=== PATIENT | female | born 1930 | race Caucasian/White ===

== ENCOUNTER 2018-09-17 10:04 | Inpatient (IN) | payer OTHER ==
[2018-09-17] MEDS ORDERED: MORPHINE 4 MG/ML SYR ONE (11:17)
[2018-09-17] MEDS ORDERED: ONDANSETRON 4 MG/2 ML VIAL ONE (11:17)
--- NOTE | 2018-09-17 11:33 | RAD REPORT ---
EXAM DESCRIPTION: RAD - Chest Pa And Lat (2 Views) - 09/17/2018 11:19 am CLINICAL HISTORY: Chest pain COMPARISON: June 2015 TECHNIQUE: PA and lateral views of the chest were obtained. 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 Flattened diaphragm noted. No acute failure, infiltr ate or mass. Heart size is normal and central vasculature is within normal limits. No pleural effu liza or pneumothorax seen. Osteopenia and accentuated kyphosis noted. There is scoliotic curvature i n the lower thoracic spine. No acute compression fracture seen. No aortic abnormality. 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
--- NOTE | 2018-09-17 11:36 | RAD REPORT ---
EXAM DESCRIPTION: RAD - Hip Left 2 View - 09/17/2018 11:19 am CLINICAL HISTORY: Fall, hip pain COMPARISON: None. FINDINGS: AP and frogleg views of the left hip were obtained. No gross fracture deformity is seen. H owever, there are subtle cortical changes in the subcapital neck concerning for fracture. No AVN or f ocal femoral head abnormality suspected. No pathologic component. Mild degenerative change along the superior acetabular rim. No periarticular mass or hematoma. Imaged portions of the left hemipelvis without acute finding. Suspected fracture findings telephoned to the referring physician 11:32 a.m.. IMPRESSION: Suspected subcapital neck fracture.
--- NOTE | 2018-09-17 11:38 | RAD REPORT ---
EXAM DESCRIPTION: RAD - Femur Left - 09/17/2018 11:19 am CLINICAL HISTORY: Fall, left hip and leg pain COMPARISON: None. FINDINGS: The proximal left femur is detailed in the separate left hip report. From proximal shaft a nd knee joint there is no fracture or acute bone finding. Degenerative changes are present at the kne e joint. No joint effusion seen. There is no dislocation or periosteal reaction noted. No acute or s uspicious bony finding. No air or foreign body in the soft tissues. IMPRESSION: Knee joint degenerative change. No acute finding from proximal shaft in the joint. Left hip joint and proximal femur detailed on the left hip report.
[2018-09-17 11:40] LABS: Absolute Lymphocytes (CBC) 0.9 K/uL (0.7-4.9); Absolute Monocytes 0.3 K/uL (0.1-1.3); Absolute Neutrophil 5.7 K/uL (1.8-8.0); Basophils % 0.4 % (0-1.3); Eosinophils % 0.8 % (0-4.4); Hematocrit 35.9 % (36.0-45.0); Lymphocytes % 12.8 % (15.3-44.8); MCH 31.7 pg (27.0-35.0); MCV 91.6 fL (80-100); Monocytes % 4.7 % (3.3-12.3); RBC Red Blood Cell Count 3.92 M/uL (3.86-4.86)
[2018-09-17 11:44] LABS: Protime INR 1.09
--- NOTE | 2018-09-17 12:06 | RAD REPORT ---
EXAM DESCRIPTION: CT - Hip Left Wo Con - 09/17/2018 11:57 am CLINICAL HISTORY: Fall, hip pain, abnormal left hip plain film COMPARISON: Left hip same date TECHNIQUE: Axial 2 millimeter thick images of the left hip joint and proximal left femur obtained. S agittal and coronal reformatted images were generated and reviewed. The CT scan was performed using dose optimization techniques as appropriate to a performed exam incl uding one or more of the following: Automated exposure control, adjustment of the mA and/or kV accord ing to patient size (this includes techniques or standardized protocols for targeted exams where dose is matched to indication/reason for exam) and use of iterative reconstruction technique. FINDINGS: Left subcapital neck fracture is present. There is no impaction, distraction or angulation deformity. No dislocation of the femoral head. No AVN or focal femoral head abnormality seen. There is no intertrochanteric extension. Degenerative change present along the superior acetabular rim. No acute findings in the left hemipelv is. No periarticular mass or hematoma. IMPRESSION: Left subcapital neck fracture with no impaction, distraction or angulation deformity. No pathologic etiology. No AVN or focal femoral head abnormality.
--- NOTE | 2018-09-17 12:17 | EDPHYS ---
Physician Documentation [facility] Name: Eli Valle Age: 87 yrs Sex: Female : 1930 Arrival Date: 09/17/2018 Time: 10:09 Bed 5 Private MD: SHAQ HO ED Physician Moiz Brown HPI: 09/17 10:47 This 87 yrs old Female presents to ER via Wheelchair with complaints of Fall rn Injury - HIP. 10:47 Details of fall: The patient fell from an upright position, while walking. Onset: The rn symptoms/episode began/occurred just prior to arrival. Associated injuries: The patient sustained left hip. Severity of symptoms: At their worst the symptoms were moderate, in the emergency department the symptoms are unchanged. The patient has not experienced similar symptoms in the past. The patient has not recently seen a physician. Mechanical fall in bathroom, fell onto left hip, no head injury, reports mild left rib pain when sits up, but denies other injuries. . Historical: - Allergies: 10:24 No Known Allergies; aj1 - PMHx: 10:24 Dementia; aj1 - Immunization history:: Flu vaccine is not up to date. - Social history:: Smoking status: Patient/guardian denies using tobacco. - Ebola Screening: : Patient denies travel to an Ebola-affected area in the 21 days before illness onset. - Family history:: not pertinent. - Hospitalizations: : No recent hospitalization is reported. ROS: 10:48 Constitutional: Negative for fever, chills, and weight loss, Eyes: Negative for injury, rn pain, redness, and discharge, ENT: Negative for injury, pain, and discharge, Neck: Negative for injury, pain, and swelling, Cardiovascular: Negative for chest pain, palpitations, and edema, Respiratory: Negative for shortness of breath, cough, wheezing, and pleuritic chest pain, Abdomen/GI: Negative for abdominal pain, nausea, vomiting, diarrhea, and constipation, MS/Extremity: + left hip and leg injury and pain Neuro: Negative for headache, weakness, numbness, tingling, and seizure. Exam: 10:48 Constitutional: This is a well developed, well nourished patient who is awake, alert, rn and in no acute distress. Head/Face: Normocephalic, atraumatic. Eyes: Pupils equal round and reactive to light, extra-ocular motions intact. Lids and lashes normal. Conjunctiva and sclera are non-icteric and not injected. Cornea within normal limits. Periorbital areas with no swelling, redness, or edema. Neck: Trachea midline, no thyromegaly or masses palpated, no vertebral point tenderness. Chest/axilla: Normal chest wall appearance and motion. Nontender with no deformity. No lesions are appreciated. Cardiovascular: Regular rate and rhythm with a normal S1 and S2. No pulse deficits. Respiratory: Lungs have equal breath sounds bilaterally, clear to auscultation, No increased work of breathing, no retractions or nasal flaring. Abdomen/GI: soft, non-tender MS/ Extremity: Pulses equal, no cyanosis. Neurovascular intact. + painful ROM left hip and tenderness proximal left femur Neuro: Awake and alert, GCS 15, oriented to person, place, time, and situation. Cranial nerves II-XII grossly intact. Motor strength 5/5 in all extremities. Sensory grossly intact. Vital Signs: 10:19 BP 112 / 59; Pulse 63; Resp 20; Temp 97.6; Pulse Ox 99% on R/A; Weight 39.01 kg (R); aj1 Height 5 ft. 1 in. (154.94 cm) (R); Pain 10/10; 11:35 BP 134 / 53; Pulse 52; Resp 18; Pulse Ox 100% on R/A; Pain 10/10; ph 12:45 BP 124 / 58; Pulse 54; Resp 18; Pulse Ox 99% on R/A; ph 14:10 BP 156 / 58; Pulse 50; Resp 18; Temp 97.6; Pulse Ox 100% on R/A; ph 10:19 Body Mass Index 16.25 (39.01 kg, 154.94 cm) aj1 [place] Coma Score: 10:19 Eye Response: spontaneous(4). Verbal Response: oriented(5). Motor Response: obeys aj1 commands(6). Total: 15. 11:35 Eye Response: spontaneous(4). Verbal Response: oriented(5). Motor Response: obeys ph commands(6). Total: 15. 12:45 Eye Response: spontaneous(4). Verbal Response: oriented(5). Motor Response: obeys ph commands(6). Total: 15. 14:10 Eye Response: spontaneous(4). Verbal Response: oriented(5). Motor Response: obeys ph commands(6). Total: 15. Trauma Score (Adult): 10:19 Eye Response: spontaneous(1); Verbal Response: oriented(1); Motor Response: obeys aj1 commands(2); Systolic BP: > 89 mm Hg(4); Respiratory Rate: 10 to 29 per min(4); [place] Score: 15; Trauma Score: 12 11:35 Eye Response: spontaneous(1); Verbal Response: oriented(1); Motor Response: obeys ph commands(2); Systolic BP: > 89 mm Hg(4); Respiratory Rate: 10 to 29 per min(4); [place] Score: 15; Trauma Score: 12 12:45 Eye Response: spontaneous(1); Verbal Response: oriented(1); Motor Response: obeys ph commands(2); Systolic BP: > 89 mm Hg(4); Respiratory Rate: 10 to 29 per min(4); [place] Score: 15; Trauma Score: 12 14:10 Eye Response: spontaneous(1); Verbal Response: oriented(1); Motor Response: obeys ph commands(2); Systolic BP: > 89 mm Hg(4); Respiratory Rate: 10 to 29 per min(4); [place] Score: 15; Trauma Score: 12 MDM: 10:42 Patient medically screened. rn 12:15 Differential diagnosis: contusion, fracture, sprain, strain. Data reviewed: vital rn signs, nurses notes, lab test result(s), radiologic studies, CT scan, plain films, and as a result, I will. Counseling: I had a detailed discussion with the patient and/or guardian regarding: the historical points, exam findings, and any diagnostic results supporting the discharge/admit diagnosis, lab results, radiology results, the need for further work-up and treatment in the hospital. Response to treatment: the patient's symptoms have mildly improved after treatment, and as a result, I will admit patient. Admission orders: after a detailed discussion of the patient's condition and case, the admit orders are written by me. 09/17 10:47 Order name: CBC with Diff; Complete Time: 12:08 rn 09/17 10:47 Order name: Basic Metabolic Panel; Complete Time: 12:08 rn 09/17 10:25 Order name: XRAY Hip LEFT 2 view; Complete Time: 12:08 aj1 09/17 10:25 Order name: XRAY Chest Pa And Lat (2 Views); Complete Time: 12:08 aj1 09/17 10:47 Order name: Protime (+inr); Complete Time: 12:08 rn 09/17 10:47 Order name: Ptt, Activated; Complete Time: 12:08 rn 09/17 10:47 Order name: XRAY Femur LEFT; Complete Time: 12:08 rn 09/17 10:47 Order name: IV Start; Complete Time: 11:47 rn 09/17 10:48 Order name: NPO; Complete Time: 10:53 rn 09/17 11:35 Order name: Hip Left Wo Con; Complete Time: 12:08 EDMS 09/17 12:19 Order name: CONS Physician Consult EDMS Administered Medications: 11:45 Drug: Zofran 4 mg Route: IVP; Site: left forearm; ph 14:35 Follow up: Response: No adverse reaction ph 11:46 Drug: morphine 2 mg Route: IVP; Site: left forearm; ph 14:35 Follow up: Response: No adverse reaction; Pain is decreased ph Disposition: 09/17/18 12:16 Hospitalization ordered by Philip Estrada for Inpatient Admission. Preliminary diagnosis is Nondisplaced fracture of base of neck of left femur. - Bed requested for Telemetry/MedSurg (Inpatient). - Status is Inpatient Admission. ph - Condition is Stable. - Problem is new. - Symptoms have improved. UTI on Admission? No Signatures: Dispatcher [employer] EDNC Taisha Tomas RN RN aj1 Kaykay Stiles RN RN dw Moiz Brown MD MD rn Hall, Patricia, RN RN ph Corrections: (The following items were deleted from the chart) 14:06 12:16 Hospitalization Ordered by Philip Estrada MD for Inpatient Admission. Preliminary diagnosis is Nondisplaced fracture of base of neck of left femur. Bed requested for Telemetry/MedSurg (Inpatient). Status is Inpatient Admission. Condition is Stable. Problem is new. Symptoms have improved. UTI on Admission? No. rn 14:49 14:06 09/17/2018 12:16 Hospitalization Ordered by Philip Estrada MD for Inpatient ph Admission. Preliminary diagnosis is Nondisplaced fracture of base of neck of left femur. Bed requested for Telemetry/MedSurg (Inpatient). Status is Inpatient Admission. Condition is Stable. Problem is new. Symptoms have improved. UTI on Admission? No. dw
--- NOTE | 2018-09-17 12:17 | ER ---
Nurse's Notes [facility] Name: Eli Valle Age: 87 yrs Sex: Female : 1930 Arrival Date: 09/17/2018 Time: 10:09 Bed 5 Private MD: SHAQ HO Diagnosis: Nondisplaced fracture of base of neck of left femur Presentation: 09/17 10:19 Presenting complaint: Child states: She fell last night in the middle of the night on aj1 her left side and hurt her hip and now she can't walk. Patient states that she was going to the bathroom and fell. Denies hitting head, denies LOC. Denies taking any blood thinners. Patient reports pain to left hip and left ribs. Care prior to arrival: None. Mechanism of Injury: Fall from standing position. Trauma event details: Injury occurred in the [facility]. 10:19 Acuity: BRITTNEY 3 aj1 10:19 Method Of Arrival: Wheelchair aj1 10:23 Transition of care: patient was not received from another setting of care. Onset of aj1 symptoms was September 17, 2018 at 04:00. Risk Assessment: Do you want to hurt yourself or someone else? Patient reports no desire to harm self or others. Initial Sepsis Screen: Does the patient meet any 2 criteria? No. Patient's initial sepsis screen is negative. Does the patient have a suspected source of infection? No. Patient's initial sepsis screen is negative. Triage Assessment: 10:24 General: Appears in no apparent distress. uncomfortable, Behavior is calm, cooperative, aj1 appropriate for age. Pain: Complains of pain in left lateral posterior chest, left lateral anterior chest and left hip Pain currently is 10 out of 10 on a pain scale. Neuro: Level of Consciousness is awake, alert, obeys commands. Cardiovascular: Patient's skin is warm and dry. Respiratory: Airway is patent Respiratory effort is even, unlabored, Respiratory pattern is regular, symmetrical. Trauma Activation: Not Applicable Physician: ED Physician; Name: ; Notified At: ; Arrived At: Physician: General Surgeon; Name: ; Notified At: ; Arrived At: Physician: Radiology; Name: ; Notified At: ; Arrived At: Physician: Respiratory; Name: ; Notified At: ; Arrived At: Physician: Lab; Name: ; Notified At: ; Arrived At: Historical: - Allergies: 10:24 No Known Allergies; aj1 - PMHx: 10:24 Dementia; aj1 - Immunization history:: Flu vaccine is not up to date. - Social history:: Smoking status: Patient/guardian denies using tobacco. - Ebola Screening: : Patient denies travel to an Ebola-affected area in the 21 days before illness onset. - Family history:: not pertinent. - Hospitalizations: : No recent hospitalization is reported. Screenin:19 Abuse screen: Denies threats or abuse. Denies injuries from another. Tuberculosis aj1 screening: No symptoms or risk factors identified. 10:50 Fall Risk Fall in past 12 months (25 points). Secondary diagnosis (15 points) dementia, ph IV access (20 points). Ambulatory Aid- None/Bed Rest/Nurse Assist (0 pts). Gait- Impaired (20 pts.). Mental Status- Oriented to own ability (0 pts). Total [place] Fall Scale indicates High Risk Score (45 or more points). Fall prevention measures have been instituted. Side Rails Up X 2 Placed Close to Nursing Station Frequent Obs/Assessments Occuring Family Present and informed to notify staff if the need to leave the bedside As available patient and family educated on Fall Prevention Program and Strategies. 10:52 Nutritional screening: No deficits noted. ph Primary Survey: 10:19 A: Airway: patent. Breathing/Chest: Respiratory pattern: regular, Respiratory effort: aj1 spontaneous, unlabored. Circulation: Skin color: pink. Disability Alert. 14:34 Reassessment Breathing/Chest Respiratory pattern Regular Respiratory effort Spontaneous ph Unlabored Disability Alert. Assessment: 10:47 General: Appears in no apparent distress. uncomfortable, Behavior is calm, cooperative, ph appropriate for age. Pain: Complains of pain in left hip. Neuro: Level of Consciousness is awake, alert, obeys commands, Oriented to person, place, time, situation. Cardiovascular: Denies chest pain, nausea, shortness of breath. Respiratory: Airway is patent Respiratory effort is even, unlabored. Derm: Skin is intact, is fragile, is thin, Skin is pink, warm \T\ dry. Musculoskeletal: Circulation, motion, and sensation intact. Range of motion: limited in left hip. 11:45 Reassessment: Patient appears in no apparent distress at this time. Patient and/or ph family updated on plan of care and expected duration. Pain level reassessed. Patient is alert, oriented x 3, equal unlabored respirations, skin warm/dry/pink. Pt taken to radiology for CT, family remains at bedside. 13:00 Reassessment: Patient appears in no apparent distress at this time. Patient and/or ph family updated on plan of care and expected duration. Pain level reassessed. Pt asleep w/ even, unlabored respirations, VSS, daughter at bedside. 14:34 Reassessment: Patient appears in no apparent distress at this time. Patient and/or ph family updated on plan of care and expected duration. Pain level reassessed. Pt resting quietly, currently rates pain 7/10, report called to Kp BARAJAS, pt to be taken to room via stretcher. Vital Signs: 10:19 BP 112 / 59; Pulse 63; Resp 20; Temp 97.6; Pulse Ox 99% on R/A; Weight 39.01 kg (R); aj1 Height 5 ft. 1 in. (154.94 cm) (R); Pain 10/10; 11:35 BP 134 / 53; Pulse 52; Resp 18; Pulse Ox 100% on R/A; Pain 10/10; ph 12:45 BP 124 / 58; Pulse 54; Resp 18; Pulse Ox 99% on R/A; ph 14:10 BP 156 / 58; Pulse 50; Resp 18; Temp 97.6; Pulse Ox 100% on R/A; ph 10:19 Body Mass Index 16.25 (39.01 kg, 154.94 cm) aj1 Faby Coma Score: 10:19 Eye Response: spontaneous(4). Verbal Response: oriented(5). Motor Response: obeys aj1 commands(6). Total: 15. 11:35 Eye Response: spontaneous(4). Verbal Response: oriented(5). Motor Response: obeys ph commands(6). Total: 15. 12:45 Eye Response: spontaneous(4). Verbal Response: oriented(5). Motor Response: obeys ph commands(6). Total: 15. 14:10 Eye Response: spontaneous(4). Verbal Response: oriented(5). Motor Response: obeys ph commands(6). Total: 15. Trauma Score (Adult): 10:19 Eye Response: spontaneous(1); Verbal Response: oriented(1); Motor Response: obeys aj1 commands(2); Systolic BP: > 89 mm Hg(4); Respiratory Rate: 10 to 29 per min(4); [place] Score: 15; Trauma Score: 12 11:35 Eye Response: spontaneous(1); Verbal Response: oriented(1); Motor Response: obeys ph commands(2); Systolic BP: > 89 mm Hg(4); Respiratory Rate: 10 to 29 per min(4); Faby Score: 15; Trauma Score: 12 12:45 Eye Response: spontaneous(1); Verbal Response: oriented(1); Motor Response: obeys ph commands(2); Systolic BP: > 89 mm Hg(4); Respiratory Rate: 10 to 29 per min(4); [place] Score: 15; Trauma Score: 12 14:10 Eye Response: spontaneous(1); Verbal Response: oriented(1); Motor Response: obeys ph commands(2); Systolic BP: > 89 mm Hg(4); Respiratory Rate: 10 to 29 per min(4); [place] Score: 15; Trauma Score: 12 ED Course: 10:09 Patient arrived in ED. sb2 10:10 SHAQ HO is Private Physician. sb2 10:19 Patient has correct armband on for positive identification. aj1 10:19 Patient maintains SpO2 saturation greater than 95% on room air. aj1 10:21 Triage completed. aj1 10:24 Arm band placed on Patient placed in waiting room, Patient notified of wait time. aj1 10:42 Moiz Brown MD is Attending Physician. rn 10:46 Paul Rayo RN is Primary Nurse. bp 10:50 Patient moved to radiology via stretcher. jb2 10:50 Thermoregulation: warm blanket given to patient. ph 11:15 XRAY Chest Pa And Lat (2 Views) In Process Unspecified. EDMS 11:16 XRAY Hip LEFT 2 view In Process Unspecified. EDMS 11:16 XRAY Femur LEFT In Process Unspecified. EDMS 11:17 X-ray completed. Patient tolerated procedure well. Patient moved back from radiology. jb2 11:34 Initial lab(s) drawn, by me, sent to lab. Missed attempt(s): 20 gauge in right ph antecubital area. Bleeding controlled, band aid applied, catheter tip intact. 11:57 Hip Left Wo Con In Process Unspecified. EDMS 12:15 Philip Estrada MD is Hospitalizing Provider. rn 14:13 No provider procedures requiring assistance completed. Patient admitted, IV remains in ph place. Administered Medications: 11:45 Drug: Zofran 4 mg Route: IVP; Site: left forearm; ph 14:35 Follow up: Response: No adverse reaction ph 11:46 Drug: morphine 2 mg Route: IVP; Site: left forearm; ph 14:35 Follow up: Response: No adverse reaction; Pain is decreased ph Intake: 11:35 PO: 0ml; Total: 0ml. ph 12:45 PO: 0ml; Total: 0ml. ph Output: 11:35 Urine: 0ml; Total: 0ml. ph 12:45 Urine: 0ml; Total: 0ml. ph Outcome: 12:16 Decision to Hospitalize by Provider. rn 14:34 Admitted to Med/surg accompanied by tech, via stretcher, room 201, with chart, Report ph called to Kp BARAJAS 14:34 Condition: stable 14:36 Patient's length of stay in the Emergency Department was greater than 2 hours. awaiting ph room assignmentPatient's length of stay extended due to 14:49 Patient left the ED. ph Signatures: Dispatcher [employer] EDMS Taisha Tomas RN RN aj Zac Lopez jb2 Moiz Brown MD MD rn Hall, Patricia, RN RN ph Peltier, Brian, RN RN bp Billeau, Sheri sb2 Corrections: (The following items were deleted from the chart) 10:23 10:19 Presenting complaint: Child states: She fell last night in the middle of the 1 night on her left side and hurt her hip and now she can't walk. Patient states that she was going to the bathroom and fell. Denies hitting head, denies LOC. Denies taking any blood thinners aj
[2018-09-17] MEDS ORDERED: ALBUTEROL 2.5 MG/3 ML NEB SOL NEB PRN (15:04)
[2018-09-17] MEDS ORDERED: ACETAMINOPHEN 500 MG TAB PO PRN (15:04)
[2018-09-17] MEDS ORDERED: ONDANSETRON 4 MG/2 ML VIAL IV PRN (15:04)
[2018-09-17] MEDS: MORPHINE 2 MG/ML SYR IV PRN (15:43)
[2018-09-17] MEDS ORDERED: PNEUMOCOCCAL VACCINE 0.5 ML IMVAC ONE (17:00)
--- NOTE | 2018-09-17 17:21 | P.HP ---
Certification for Inpatient Patient admitted to: Inpatient With expected LOS: >2 Midnights Practitioner: I am a practitioner with admitting privileges, knowledge of patient current condition, hospital course, and medical plan of care. Services: Services provided to patient in accordance with Admission requirements found in Title 42 Section 412.3 of the Code of Federal Regulations Patient History Date of Service: 09/17/18 Reason for admission: Left nondisplaced hip fracture History of Present Illness: This is a 87-year-old female history of dimension costosternal after mechanical fall. She came in with complaints of left sided hip pain, in the ER she was found to have a left sided nondisplaced subcapital neck fracture. I was unable to get any history or information from patient and she was in pain, has a history dementia and no family was present at bedside. From chart review/ER notes, it seems patient experienced a mechanical fall. At the time of my exam, she was in moderate distress secondary to pain, it seems she was only oriented x1 and seemed to be a little confused. Unsure of baseline at this time as no family to speak to. Allergies No Known Allergies Allergy (Unverified 09/17/18 14:18) Home Medications: Donepezil [Aricept] 10 mg PO BEDTIME 09/17/18 Simvastatin 20 mg PO BEDTIME 09/17/18 - Past Medical/Surgical History Has patient received pneumonia vaccine in the past: No Diabetic: No -: dementia -: hysterectomy - Social History Smoking Status: Never smoker Alcohol use: Yes CD- Drugs: No Caffeine use: Yes Place of Residence: Home Review of Systems is unable to be obtained (Due to patient not cooperative, secondary to pain and or dementia) Musculoskeletal: As per HPI (Hip pain, left side) Physical Examination - Vital Signs Temperature: 97.6 F Blood Pressure: 156/58 Pulse: 50 Respirations: 18 - Physical Exam General: Alert, Oriented x1, Moderate distress HEENT: Atraumatic, PERRLA, Mucous membr. moist/pink, EOMI, Sclerae nonicteric Neck: Supple, 2+ carotid pulse no bruit, No LAD, Without JVD or thyroid abnormality Respiratory: Clear to auscultation bilaterally, Normal air movement Cardiovascular: Regular rate/rhythm, Normal S1 S2 Gastrointestinal: Normal bowel sounds, No tenderness Musculoskeletal: Tenderness (To left hip) Integumentary: No rashes Neurological: Normal speech, Normal strength at 5/5 x4 extr, Normal tone, Normal affect - Studies Laboratory Data (last 24 hrs) 09/17/18 11:30: PT 12.9 H, INR 1.09, APTT 30.9 09/17/18 11:30: Sodium 139, Potassium 4.0, BUN 20 H, Creatinine 0.80, Glucose 89 09/17/18 11:30: WBC 7.0, Hgb 12.4, Hct 35.9 L, Plt Count 275 Assessment and Plan - Plan This is an 87-year-old female with: Nondisplaced subcapital neck fracture Per reports, patient after mechanical fall with nondisplaced subcapital neck fracture. IV fluids, IV pain control Dr. Mckeon consulted Keep NPO for possible surgical procedure. Dementia Unsure of home medications at this time, will discuss with family when they are present Hypercholesterolemia Will restart medications when they become available after speaking to family. DVT prophylaxis: Hold for possible surgical procedure GI prophylaxis: Not needed Diet: NPO, pending possible surgical procedure Disposition: Pending orthopedic Consult/recommendations. Pending symptomatic treatment. Patient will likely need placement postsurgery, will get social work involved. - Advance Directives Does patient have a Living Will: No Does patient have a Durable POA for Healthcare: No Time Spent Managing Pts Care (In Minutes): 45
[2018-09-17] MEDS: NA CHLORIDE 0.9% 1,000 ML IV SCH (20:56)
[2018-09-18 04:07] LABS: Urine Appearance CLOUDY; Urine Bilirubin NEGATIVE (NEG); Urine Blood 2+ (NEG); Urine Color YELLOW; Urine Glucose NEGATIVE (NEG); Urine Protein NEGATIVE (NEG); Urine Specific Gravity 1.015 (1.005-1.030); Urine Urobilinogen 0.2 mg/dL (0.2-1.0)
[2018-09-18 04:21] LABS: Urine Microscopic Reflex ORDER UMIC
[2018-09-18] MEDS: NA CHLORIDE 0.9% 1,000 ML IV SCH ×2 (04:28→21:57)
[2018-09-18] MEDS: MORPHINE 2 MG/ML SYR IV PRN ×3 (04:37→21:56)
--- NOTE | 2018-09-18 05:11 | CON ---
Date of Consultation: 09/17/2018 History Of Present Illness: This is my first time seeing this patient to my knowledge. She is an 87 -year-old female who unfortunately suffers from dementia and has had multiple falls. She apparently was brought to the emergency department because of complaints of pain in the left lower extremity. S he was seen and x-rays were taken which demonstrated perhaps a very subtle fracture of the subcapital area of the femoral neck. CT scan is done, the result is non-displaced, non-impacted subcapital fra cture of the femoral neck on the left. Physical Examination: On physical examination, all of her long bones and joints are palpated without pain or crepitation wi th the exception of pain with any movement or manipulation of her left lower extremity. This appears to localize to her hip. The patient herself cannot really give any good history for why she is in [facility], however family is there. She stated it is consistent that she is complaining of left-si ded hip pain and has had multiple falls. All risks, benefits, and alternatives of different methods of treating this were discussed with the f amily including bipolar hemiarthroplasty, nonoperative management, or screw fixation. They state the y understand everything as presented and at this time opted for screw fixation. Speaking with the spitalist, she says she did not feel that she needs any further cardiac clearance because of lack of medical problems. I also spoke with Nursing for n.p.o. after midnight, and we will most likely move forward with screw fixation with cannulated screws tomorrow. All the patient's and family's question s had otherwise been answered today. GLENN Voice ID: [id number] Report ID: [id number]
[2018-09-18 05:55] LABS: Urine Bacteria LOADED /HPF (<20); Urine Culture Reflex Order REFLEXED; Urine RBC <5 /HPF (NONE SEEN)
[2018-09-18 05:56] LABS: Absolute Monocytes 0.3 K/uL (0.1-1.3); Absolute Neutrophil 4.1 K/uL (1.8-8.0); Basophils % 0.8 % (0-1.3); Hematocrit 33.9 % (36.0-45.0); Lymphocytes % 17.5 % (15.3-44.8); MCH 30.9 pg (27.0-35.0); MCV 91.6 fL (80-100); MPV 7.8 fL (7.6-11.3); Monocytes % 5.8 % (3.3-12.3); RBC Red Blood Cell Count 3.71 M/uL (3.86-4.86)
[2018-09-18 06:23] LABS: Albumin 3.1 g/dL (3.4-5.0); Magnesium 2.1 mg/dL (1.8-2.4); Phosphorus 3.1 mg/dL (2.5-4.9); Potassium 3.9 mmol/L (3.5-5.1); Protein, Total 6.3 g/dL (6.4-8.2)
[2018-09-18] MEDS ORDERED: KCL 20 MEQ/100 mL IVPB 20 MEQ/100 ML BAG IV SCH (08:00)
[2018-09-18] MEDS ORDERED: PROPOFOL 200 MG/20 ML VIAL IV ONE (11:34)
[2018-09-18] MEDS ORDERED: LIDOCAINE 1% MPF 5 ML VIAL ONE (11:35)
[2018-09-18] MEDS ORDERED: FENTANYL CITR 100 MCG/2 ML ONE (11:35)
[2018-09-18] MEDS ORDERED: ROCURONIUM 50 MG/5 ML VIAL IV ONE (12:11)
[2018-09-18] MEDS ORDERED: CEFAZOLIN SODIUM 1 GM/VIAL ONE (12:17)
[2018-09-18] MEDS ORDERED: ONDANSETRON HCL 40 MG/20 ML VIAL ONE (12:38)
[2018-09-18] MEDS ORDERED: GLYCOPYRROLATE 0.2 MG/ML SYR ONE (12:51)
[2018-09-18] MEDS ORDERED: NEOSTIGMINE 1 MG/ML -5 ML SYRINGE ONE (12:53)
--- NOTE | 2018-09-18 13:09 | P.BOP ---
Preoperative diagnosis: left hip nondiplaced subcapital femoral neck fx Postoperative diagnosis: same Primary procedure: left hip screw fixation Estimated blood loss: 10ccs Anesthesia: General Complications: None Transferred to: Recovery Room Condition: Good
--- NOTE | 2018-09-18 13:34 | RAD REPORT ---
EXAM DESCRIPTION: RAD - Hip In Or - 09/18/2018 1:28 pm CLINICAL HISTORY: Left femoral fracture FINDINGS: . Pins affix a femoral fracture in good alignment. Six fluoroscopic spot images obtained. Fluoroscopy time 1.3 minutes Exam performed by Dr. Mckeon
[2018-09-18] MEDS: MEPERIDINE HCL 25 MG/0.5 ML ONE ×4 (13:35→14:10)
[2018-09-18] MEDS ORDERED: NA CHLORIDE 0.9% 1,000 ML ONE (14:09)
--- NOTE | 2018-09-18 17:55 | P.PN ---
Subjective Date of Service: 09/18/18 Chief Complaint: Left nondisplaced hip fracture Patient seen and examined at bedside. No family at bedside. Reports improved pain. She is postop day 0 left hip screw fixation. No current complaint or concern Review of Systems As noted Physical Examination - Vital Signs Temperature: 97.4 F Blood Pressure: 156/70 Pulse: 69 Respirations: 16 Pulse Ox (%): 100 - Physical Exam General: Alert, In no apparent distress HEENT: Atraumatic, PERRLA, EOMI Neck: Supple, JVD not distended Respiratory: Clear to auscultation bilaterally, Normal air movement Cardiovascular: Regular rate/rhythm, Normal S1 S2 Gastrointestinal: Normal bowel sounds, No tenderness Musculoskeletal: Tenderness Integumentary: No rashes Neurological: Normal speech, Normal tone, Normal affect Assessment And Plan - Plan This is an 87-year-old female with: Nondisplaced subcapital neck fracture Postop day #0, left hip screw fixation Per reports, patient after mechanical fall with nondisplaced subcapital neck fracture. IV fluids, IV pain control Dr. Mckeon consulted, recommendations appreciated Dementia Restarted home donepezil Hypercholesterolemia Restarted home statin DVT prophylaxis: Will restart GI prophylaxis: Not needed Diet: Regular diet Disposition: Pending symptomatic treatment. Patient will likely need placement postsurgery, will get social work involved. Physician Review: Patient Assessed, Agree with Above Assessment and Plan Time Spent Managing PTS Care (In Minutes): 35
[2018-09-18] MEDS ORDERED: HOME MED 1 EA UNK (Simvastatin [Simvastatin] 20 MG) PO SCH (21:00)
[2018-09-18] MEDS: ATORVASTATIN 10 MG TAB PO SCH (21:56)
[2018-09-18] MEDS: DONEPEZIL HCL 5 MG TAB PO SCH (21:56)
--- NOTE | 2018-09-19 | OP ---
Date of Procedure: 09/18/2018 Surgeon: Yunier Mckeon MD Preoperative Diagnosis: Left hip subcapital femur fracture which is nondisplaced. Postoperative Diagnosis: Left hip subcapital femur fracture which is nondisplaced. Procedure: Left hip screw fixation using 6.5 cannulated screw set. Estimated Blood Loss: Less than 10 cc. Complications: There were no complications. Specimen: No pathology specimens sent. Indications For Operation: The patient is an 87-year-old female who unfortunately had an injury to h er left hip. She was seen ane examined in the emergency department. She was ruled out for other inj uries. However, CT scan demonstrated a very small crack in the femoral neck without displacement or impaction. All risks, benefits, and alternatives to different methods of treating this were discusse d with the patient's family as the patient is not really able to make any of her medical decisions. They state they understand things presented and opt for screw fixation and all their questions have b een answered. Description Of Procedure: The patient was taken to the operating room and placed in supine position. General anesthesia was obtained by the staff. Following this, the patient was then placed on the f racture table and appropriately positioned for good use of the C-arm. There was no reduction maneuve r performed. However, the fracture itself has not displaced. Following this, three 6.5 cannulated s crews were then placed in standard fashion in an inverted triangle which do cross the fracture site. Following this, it was gently irrigated and the skin was closed using interrupted Vicryl sutures, fo llowed by jennifer. The patient was then placed in Aquacel dressing, awakened, taken to recovery room in good condition. The re were no complications. /ALEXANDER Voice ID: [id number] Report ID: [id number]
[2018-09-19 05:46] LABS: Absolute Monocytes 0.5 K/uL (0.1-1.3); Absolute Neutrophil 6.4 K/uL (1.8-8.0); Basophils % 0.3 % (0-1.3); Eosinophils % 0.6 % (0-4.4); Lymphocytes % 12.1 % (15.3-44.8); MPV 7.4 fL (7.6-11.3); Monocytes % 6.2 % (3.3-12.3); RBC Red Blood Cell Count 3.74 M/uL (3.86-4.86)
[2018-09-19 05:53] LABS: ALT/SGPT 13 U/L (12-78); AST/SGOT 13 U/L (15-37); Alkaline Phosphatase 61 U/L (45-117); BUN Blood Urea Nitrogen 15 mg/dL (7-18); Bicarbonate 18 mmol/L (21-32); Glucose Level 82 mg/dL (74-106); Potassium 4.1 mmol/L (3.5-5.1); Protein, Total 6.1 g/dL (6.4-8.2); Sodium Level 139 mmol/L (136-145)
[2018-09-19] MEDS: MORPHINE 2 MG/ML SYR IV PRN ×3 (09:32→20:58)
[2018-09-19] MEDS: NA CHLORIDE 0.9% 1,000 ML IV SCH (12:34)
--- NOTE | 2018-09-19 13:34 | P.PN ---
Subjective Date of Service: 09/19/18 Chief Complaint: Left nondisplaced hip fracture Patient seen and examined at bedside. No family at bedside. Reports improved pain. She is postop day 1 left hip screw fixation. No current complaint or concern. Working with physical therapy Review of Systems As noted Physical Examination - Vital Signs Temperature: 97.8 F Blood Pressure: 139/59 Pulse: 79 Respirations: 16 Pulse Ox (%): 98 - Physical Exam General: Alert, In no apparent distress, Oriented x1 HEENT: Atraumatic, PERRLA, EOMI Neck: Supple, JVD not distended Respiratory: Clear to auscultation bilaterally, Normal air movement Cardiovascular: Regular rate/rhythm, Normal S1 S2 Gastrointestinal: Normal bowel sounds, No tenderness Musculoskeletal: No tenderness Integumentary: No rashes Neurological: Normal speech, Normal tone, Normal affect Assessment And Plan - Plan This is an 87-year-old female with: Nondisplaced subcapital neck fracture Postop day #1, left hip screw fixation Per reports, patient after mechanical fall with nondisplaced subcapital neck fracture. IV fluids, IV pain control Dr. Mckeon consulted, recommendations appreciated Physical therapy, consult. Working with patient Dementia Restarted home donepezil Hypercholesterolemia Restarted home statin DVT prophylaxis: Will restart GI prophylaxis: Not needed Diet: Regular diet Disposition: Pending symptomatic treatment. Patient will likely need placement , possible rehab. Social work on board. Physician Review: Patient Assessed, Agree with Above Assessment and Plan Time Spent Managing PTS Care (In Minutes): 40
[2018-09-19] MEDS: DONEPEZIL HCL 5 MG TAB PO SCH (20:41)
[2018-09-19] MEDS: ATORVASTATIN 10 MG TAB PO SCH (20:42)
[2018-09-19] MEDS: ENSURE HIGH PROTEIN 237 ML CAN PO SCH (21:05)
[2018-09-19] MEDS: PROMOD 30 ML DOSE PO SCH (21:05)
[2018-09-20] MEDS: NA CHLORIDE 0.9% 1,000 ML IV SCH ×2 (02:13→15:28)
[2018-09-20 05:35] LABS: Absolute Lymphocytes (CBC) 1.4 K/uL (0.7-4.9); Absolute Monocytes 0.7 K/uL (0.1-1.3); Absolute Neutrophil 4.6 K/uL (1.8-8.0); Basophils % 0.3 % (0-1.3); Hematocrit 31.3 % (36.0-45.0); Lymphocytes % 19.9 % (15.3-44.8); MCH 32.4 pg (27.0-35.0); MCV 92.4 fL (80-100); MPV 7.2 fL (7.6-11.3); Monocytes % 9.5 % (3.3-12.3); RBC Red Blood Cell Count 3.39 M/uL (3.86-4.86)
[2018-09-20 05:45] LABS: ALT/SGPT 12 U/L (12-78); AST/SGOT 11 U/L (15-37); Albumin 2.6 g/dL (3.4-5.0); Alkaline Phosphatase 56 U/L (45-117); BUN Blood Urea Nitrogen 10 mg/dL (7-18); Bicarbonate 23 mmol/L (21-32); Bilirubin Total 0.9 mg/dL (0.2-1.0); Glucose Level 114 mg/dL (74-106); Potassium 3.8 mmol/L (3.5-5.1); Protein, Total 5.6 g/dL (6.4-8.2); Sodium Level 142 mmol/L (136-145)
[2018-09-20] MEDS ORDERED: POTASSIUM 25 MEQ EFFERV TAB PO ONE (06:00)
[2018-09-20] MEDS: ENSURE HIGH PROTEIN 237 ML CAN PO SCH ×3 (10:03→21:50)
[2018-09-20] MEDS: PROMOD 30 ML DOSE PO SCH ×2 (10:03→21:51)
--- NOTE | 2018-09-20 13:56 | P.PN ---
Subjective Date of Service: 09/20/18 Chief Complaint: Left nondisplaced hip fracture Patient seen and examined at bedside. No family at bedside. Reports improved pain. She is postop day 2 left hip screw fixation. No current complaint or concern. Working with physical therapy Review of Systems As noted above Physical Examination - Vital Signs Temperature: 98.6 F Blood Pressure: 146/60 Pulse: 66 Respirations: 18 Pulse Ox (%): 98 - Physical Exam General: Alert, In no apparent distress, Oriented x1 HEENT: Atraumatic, PERRLA, EOMI Neck: Supple, JVD not distended Respiratory: Clear to auscultation bilaterally, Normal air movement Cardiovascular: Regular rate/rhythm, Normal S1 S2 Gastrointestinal: Normal bowel sounds, No tenderness Musculoskeletal: No tenderness Integumentary: No rashes Neurological: Normal speech, Normal tone, Normal affect Assessment And Plan - Plan This is an 87-year-old female with: Nondisplaced subcapital neck fracture Postop day #2, left hip screw fixation Per reports, patient after mechanical fall with nondisplaced subcapital neck fracture. IV fluids, IV pain control Dr. Mckeon consulted, recommendations appreciated Physical therapy, consult. Working with patient UTI with Kelbsiella Pneumonia Start IV Rocephin. Dementia Restarted home donepezil Hypercholesterolemia Restarted home statin DVT prophylaxis: Lovenox GI prophylaxis: Not needed Diet: Regular diet Disposition: Pending symptomatic treatment. Patient will likely need placement , possible rehab, consult placed. Social work on board. Physician Review: Patient Assessed, Agree with Above Assessment and Plan Time Spent Managing PTS Care (In Minutes): 45
[2018-09-20] MEDS: CEFTRIAXONE/SWI 1gm 1 GM/10 ML SYR IV SCH (15:45)
[2018-09-20] MEDS: ENOXAPARIN 40 MG/0.4 ML SQ SCH (17:14)
--- NOTE | 2018-09-20 18:39 | RAD REPORT ---
EXAM DESCRIPTION: RAD - Forearm Left - 09/20/2018 6:16 pm CLINICAL HISTORY: Left forearm pain FINDINGS: Old distal radial fracture is seen. Old avulsion fracture ulnar styloid process No acute fracture is seen. Bones are osteoporotic
[2018-09-20] MEDS: HYDROCODONE/APAP 10/325 TAB PO PRN (19:13)
[2018-09-20] MEDS: DONEPEZIL HCL 5 MG TAB PO SCH (21:50)
[2018-09-20] MEDS: ATORVASTATIN 10 MG TAB PO SCH (21:50)
[2018-09-21] MEDS: NA CHLORIDE 0.9% 1,000 ML IV SCH ×2 (04:12→16:24)
[2018-09-21 06:01] LABS: Absolute Lymphocytes (CBC) 1.7 K/uL (0.7-4.9); Absolute Monocytes 0.5 K/uL (0.1-1.3); Basophils % 0.5 % (0-1.3); Eosinophils % 5.5 % (0-4.4); Hematocrit 31.4 % (36.0-45.0); Lymphocytes % 31.2 % (15.3-44.8); MCH 32.3 pg (27.0-35.0); MCV 91.5 fL (80-100); MPV 7.8 fL (7.6-11.3); RBC Red Blood Cell Count 3.43 M/uL (3.86-4.86)
[2018-09-21 06:28] LABS: ALT/SGPT 12 U/L (12-78); AST/SGOT 10 U/L (15-37); Albumin 2.6 g/dL (3.4-5.0); Alkaline Phosphatase 57 U/L (45-117); BUN Blood Urea Nitrogen 10 mg/dL (7-18); Bicarbonate 24 mmol/L (21-32); Bilirubin Total 0.7 mg/dL (0.2-1.0); Glucose Level 91 mg/dL (74-106); Magnesium 2.1 mg/dL (1.8-2.4); Phosphorus 1.6 mg/dL (2.5-4.9); Potassium 3.3 mmol/L (3.5-5.1); Protein, Total 5.6 g/dL (6.4-8.2); Sodium Level 144 mmol/L (136-145)
[2018-09-21] MEDS ORDERED: KCL 20 MEQ/100 mL IVPB 20 MEQ/100 ML BAG IV SCH ×2 (07:00→22:00)
[2018-09-21] MEDS ORDERED: POTASSIUM PHOS IN 0.9 % NACL 15 MMOL/250 ML BAG IV ONE (08:00)
[2018-09-21] MEDS: CEFTRIAXONE/SWI 1gm 1 GM/10 ML SYR IV SCH (08:19)
[2018-09-21] MEDS: HYDROCODONE/APAP 10/325 TAB PO PRN (08:19)
[2018-09-21] MEDS: ENSURE HIGH PROTEIN 237 ML CAN PO SCH ×3 (08:19→20:38)
[2018-09-21] MEDS: PROMOD 30 ML DOSE PO SCH ×2 (08:19→20:39)
[2018-09-21] MEDS: MORPHINE 2 MG/ML SYR IV PRN ×2 (09:47→12:32)
--- NOTE | 2018-09-21 15:59 | P.PN ---
Subjective Date of Service: 09/21/18 Chief Complaint: Left nondisplaced hip fracture Patient seen and examined at bedside. No family at bedside. Reports improved pain. She is postop day 3 s/p left hip screw fixation. No current complaint or concern. Working with physical therapy Review of Systems As noted Physical Examination - Vital Signs Temperature: 96.8 F Blood Pressure: 139/63 Pulse: 64 Respirations: 64 Pulse Ox (%): 98 - Physical Exam General: Alert, In no apparent distress HEENT: Atraumatic, PERRLA, EOMI Neck: Supple, JVD not distended Respiratory: Clear to auscultation bilaterally, Normal air movement Cardiovascular: Regular rate/rhythm, Normal S1 S2 Gastrointestinal: Normal bowel sounds, No tenderness Musculoskeletal: No tenderness Integumentary: No rashes Neurological: Normal speech, Normal tone, Normal affect Lymphatics: No axilla or inguinal lymphadenopathy Assessment And Plan - Plan This is an 87-year-old female with: Nondisplaced subcapital neck fracture Postop day #3, left hip screw fixation Per reports, patient after mechanical fall with nondisplaced subcapital neck fracture. IV fluids, IV pain control Dr. Mckeon consulted, recommendations appreciated Physical therapy, consult. Working with patient UTI with Kelbsiella Pneumonia Start IV Rocephin. Dementia Restarted home donepezil Hypercholesterolemia Restarted home statin DVT prophylaxis: Lovenox GI prophylaxis: Not needed Diet: Regular diet Disposition: Pending symptomatic treatment. Patient will likely need placement , possible rehab, consult placed. Social work on board. Physician Review: Patient Assessed, Agree with Above Assessment and Plan
[2018-09-21] MEDS: ENOXAPARIN 40 MG/0.4 ML SQ SCH (16:23)
[2018-09-21] MEDS: DONEPEZIL HCL 5 MG TAB PO SCH (20:37)
[2018-09-21] MEDS: ATORVASTATIN 10 MG TAB PO SCH (20:37)
--- NOTE | 2018-09-21 22:45 | PN ---
Date of Progress Note: 09/21/2018 The patient is seen. She is afebrile. Her dressing is intact. Family says they feel that she is do ing well. She is currently on anticoagulation. She currently has hemoglobin of 11.1 and a white blo od cell count of 10.5. Potassium is slightly low, however these this is covered by the hospitalist a t this time. X-rays had been taken yesterday of her forearm with no distal radius fracture is seen. This can go without any casting or splinting. We do think that progression to discharge is indicate dAbhi NELSON/ALEXANDER Voice ID: [id number] Report ID: [id number]
[2018-09-22] MEDS: NA CHLORIDE 0.9% 1,000 ML IV SCH (05:42)
[2018-09-22 06:54] LABS: BUN Blood Urea Nitrogen 9 mg/dL (7-18); Bicarbonate 24 mmol/L (21-32); Glucose Level 91 mg/dL (74-106); Phosphorus 2.5 mg/dL (2.5-4.9); Potassium 3.9 mmol/L (3.5-5.1); Sodium Level 142 mmol/L (136-145)
[2018-09-22] MEDS ORDERED: POTASSIUM CL SA 10 MEQ TAB PO ONE (08:14)
[2018-09-22] MEDS: ENSURE HIGH PROTEIN 237 ML CAN PO SCH ×3 (08:26→20:03)
[2018-09-22] MEDS: CEFTRIAXONE/SWI 1gm 1 GM/10 ML SYR IV SCH (08:26)
[2018-09-22] MEDS ORDERED: KCL 20 MEQ/100 mL IVPB 20 MEQ/100 ML BAG IV SCH (09:00)
[2018-09-22] MEDS: PROMOD 30 ML DOSE PO SCH ×2 (09:00→20:03)
--- NOTE | 2018-09-22 14:16 | P.PN ---
Subjective Date of Service: 09/22/18 Chief Complaint: Left nondisplaced hip fracture Patient seen and examined at bedside. Daughter at bedside. Reports improved pain. She is postop day 4 s/p left hip screw fixation. No current complaint or concern. Working with physical therapy Review of Systems Unremarkable Physical Examination - Vital Signs Temperature: 97.8 F Blood Pressure: 177/92 Pulse: 77 Respirations: 18 Pulse Ox (%): 95 - Physical Exam General: Alert, In no apparent distress HEENT: Atraumatic, PERRLA, EOMI Neck: Supple, JVD not distended Respiratory: Clear to auscultation bilaterally, Normal air movement Cardiovascular: Regular rate/rhythm, Normal S1 S2 Gastrointestinal: Normal bowel sounds, No tenderness Musculoskeletal: Tenderness Integumentary: No rashes Neurological: Normal speech, Normal tone, Normal affect Assessment And Plan - Plan This is an 87-year-old female with: Nondisplaced subcapital neck fracture Postop day #4, left hip screw fixation w/ Dr. Mckeon Per reports, patient after mechanical fall with nondisplaced subcapital neck fracture. IV fluids discontinued as patient tolerating PO diet. IV pain control as needed Physical therapy, consult. Working with patient UTI with Kelbsiella Pneumonia Continue IV Rocephin. Dementia: seems to be at baseline,mentation moreno, per daughter at bedside Continue home donepezil Hypercholesterolemia Continue home statin DVT prophylaxis: Lovenox GI prophylaxis: Not needed Diet: Regular diet Disposition: Pending symptomatic treatment. Pending Rehab placement. Social work on board. Physician Review: Patient Assessed, Agree with Above Assessment and Plan Time Spent Managing PTS Care (In Minutes): 35
[2018-09-22] MEDS: HYDROCODONE/APAP 10/325 TAB PO PRN (15:47)
[2018-09-22] MEDS: ENOXAPARIN 40 MG/0.4 ML SQ SCH (16:58)
[2018-09-22] MEDS: ATORVASTATIN 10 MG TAB PO SCH (19:59)
[2018-09-22] MEDS: DONEPEZIL HCL 5 MG TAB PO SCH (20:00)
[2018-09-23] MEDS: HYDROCODONE/APAP 10/325 TAB PO PRN ×2 (00:12→11:59)
[2018-09-23 06:26] LABS: BUN Blood Urea Nitrogen 12 mg/dL (7-18); Bicarbonate 30 mmol/L (21-32); Glucose Level 91 mg/dL (74-106); Potassium 4.6 mmol/L (3.5-5.1); Sodium Level 141 mmol/L (136-145)
[2018-09-23] MEDS: ENSURE HIGH PROTEIN 237 ML CAN PO SCH ×2 (09:00→13:29)
[2018-09-23] MEDS: PROMOD 30 ML DOSE PO SCH (09:00)
[2018-09-23] MEDS: CEFTRIAXONE/SWI 1gm 1 GM/10 ML SYR IV SCH (10:00)
--- NOTE | 2018-09-24 06:39 | DS ---
Date of Discharge: 09/23/2018 Consultants: Dr. Mckeon with Orthopedics. Procedures: On 09/18/2018, left hip screw fixation. Admitting Diagnoses: 1.Nondisplaced subcapital neck fracture, initially encounter, status post open reduction and interna l fixation. 2.Alzheimer's dementia without behavioral disturbance. 3.Hyperlipidemia. 4.Status post mechanical fall. Discharge Diagnoses: 1.Status post mechanical fall. 2.Nondisplaced subcapital neck fracture, status post open reduction and internal fixation. 3.Urinary tract infection, acute cystitis without hematuria secondary to Klebsiella pneumoniae. 4.Alzheimer dementia with behavioral disturbance. 5.Hyperlipidemia, on statin. Hospital Course: The patient is an 87-year-old female, who is admitted to the hospital after a mecha nical fall. She had left-sided hip pain, found to have a nondisplaced subcapital neck fracture. The patient was admitted to the hospital, seen by Dr. Mckeon who performed the above-mentioned surger y. The patient did well postoperatively. She has a history of baseline dementia. She did have a po sitive urine which grew out Klebsiella pneumoniae, which was sensitive to Rocephin. The patient othe rwise did well. She was working with PT. She did have some mild hypokalemia, which was corrected. The patient's hemoglobin remained stable. The patient was then cleared for discharge from a surgical standpoint. Initially, the patient was brought to rehab, however, family decided to take the patien t home with home health. Activity: As per rehab. Diet: Heart-healthy diet. Medications: As per medications reconciliation list. Followup: Follow up with primary care physician in 2 to 3 days. Follow up with Orthopedic surgeon, Dr. Mckeon, in 7 to 10 days for wound check. Return to ER for worsening condition. Physical Examination: General: Awake, alert, oriented x2, frail female. CV: S1, S2. Peripheral pulses present. Respiratory: Moving air well bilaterally. Abdomen: Soft, nontender, nondistended. Positive bowel sounds. Extremities: No clubbing, cyanosis, or edema. Musculoskeletal: Left hip incision clean, dry, intact. Neurologic: Nonfocal. Total time spent discharging the patient was 39 minutes. /ALEXANDER Voice ID: [id number] Report ID: [id number]
== END 2018-09-23 17:08 | disposition home health service (06) | DRG 481 ==
LOC: ER 10:04 → ERHOLD 12:17 → 2ND 14:36
PROVIDERS: ADMIT Family Medicine; ATTEND Family Medicine
PROC: 0QH734Z Insertion of Internal Fixation Device into Left Upper Femur, Percutaneous Approach (ICD-10-PCS; principal; 2018-09-18 11:45)
DX: S72.045A Nondisplaced fracture of base of neck of left femur, initial encounter for closed fracture (principal); N39.0 Urinary tract infection, site not specified; F02.81 Dementia in other diseases classified elsewhere, unspecified severity, with behavioral disturbance; W18.39XA Other fall on same level, initial encounter; Y93.01 Activity, walking, marching and hiking; Y92.012 Bathroom of single-family (private) house as the place of occurrence of the external cause; E78.00 Pure hypercholesterolemia, unspecified; B96.1 Klebsiella pneumoniae [K. pneumoniae] as the cause of diseases classified elsewhere; E78.5 Hyperlipidemia, unspecified; G30.9 Alzheimer's disease, unspecified; E87.6 Hypokalemia
CPT/HCPCS: 36415; 71046; 73530; 73700; 80048; 80053; 81003; 81015; 83735; 84100; 84132; 85025; 85610; 85730; 87077; 87086; 87088; 87186; 90670; 94760; 96374; 96375; 97163; 99285; G0009; J0690; J0696; J1650; J2175; J2270; J2405; J2704; J2710; J3010; J7030